=== PATIENT | male | born 1980 | race Caucasian/White ===

== ENCOUNTER 2022-11-26 09:58 | Emergency (ER) | payer OTHER, SELFPAY ==
[2022-11-26 11:03] LABS: #Basophils 0.1 10x3/uL (0.0-0.2); #Eosinphils 0.4 10x3/uL (0.0-0.5); #Monocytes 0.8 10x3/uL (0.0-1.1); #Neutrophils 4.3 10x3/uL (1.5-8.4); %Eosinophils 4.6 % (0.0-6.0); %Lymphocytes 37.1 % (18.0-47.0); %Monocytes 9.2 % (0.0-10.0); %Neutrophils 47.8 % (40.0-75.0); Hematocrit 43.3 % (38.8-50.0); Mean Corpuscular HGB CONC 34.6 g/dL (32.0-36.0); Mean Corpuscular Hemoglobin 31.3 pg (27.0-33.0); Mean Corpuscular Volume 90.4 fl (81.2-95.1); Mean Platelet Volume 8.5 fl (7.4-10.4); Platelet Count 274 10x3/uL (150-450); RBC Distribution Width 12.3 % (11.5-14.5); Red Blood Cell (RBC) Count 4.79 10x6/uL (4.32-5.72); White Blood Cell (WBC) Count 8.9 10x3/uL (3.5-10.5)
[2022-11-26 11:14] LABS: INR-International Normal Ratio 0.9; PTT 25.9 sec (22.0-33.0); Prothrombin Time 9.8 sec (9.5-12.1)
[2022-11-26 11:32] LABS: ALT (SGPT) 25 U/L (8-55); AST (SGOT) 19 U/L (5-34); Albumin 4.1 g/dL (3.5-5.0); Alkaline Phosphatase 63 U/L (40-110); Anion Gap 14 mmol/L (10-20); BUN (Urea Nitrogen) 16 mg/dL (8.9-20.6); Bilirubin, Total Less than 0.2 mg/dL (0.2-1.2); Calc. Creatinine Clearance 0 mL/min (70-130); Calcium 9.2 mg/dL (7.8-10.44); Carbon Dioxide 24 mmol/L (22-29); Chloride 105 mmol/L (98-107); Estimated GFR 109; Globulin 2.5 g/dL (2.4-3.5); Glucose 111 mg/dL (70-105); Lipase 31 U/L (8-78); Protein, Total 6.6 g/dL (6.0-8.3); Sodium 139 mmol/L (136-145)
[2022-11-26 11:37] LABS: Troponin I Less than 0.010 ng/mL (< 0.028)
[2022-11-26] MEDS ORDERED: Ketorolac Tromethamine 30 MG/ML VIAL ONE (12:15)
[2022-11-26] MEDS ORDERED: predniSONE 20 MG TAB ONE (12:40)
[2022-11-26] MEDS ORDERED: Ondansetron PF 4 MG/2 ML Vial ONE (12:44)
[2022-11-26] MEDS ORDERED: Morphine 4 MG/ML VIAL ONE (12:44)
[2022-11-26] MEDS ORDERED: Ipratropium/Albuterol 3 ML NEB ONE (13:08)
== END 2022-11-26 13:39 | disposition home or self-care (01) ==
LOC: CSHERS 09:58
DX: J45.901 Unspecified asthma with (acute) exacerbation (principal); R21 Rash and other nonspecific skin eruption; F17.210 Nicotine dependence, cigarettes, uncomplicated
CPT/HCPCS: 36415; 71045; 80053; 83690; 84484; 85025; 85610; 85730; 86850; 86900; 86901; 93005; 93010; 94640; 94760; 96361; 96374; 96375; J1885; J2270; J2405; J7512; J7620

== ENCOUNTER 2024-01-07 08:58 | Emergency (ER) | payer OTHER ==
[2024-01-07] MEDS ORDERED: Morphine 4 MG/ML VIAL ONE (09:24)
[2024-01-07] MEDS ORDERED: Ketorolac Tromethamine 30 MG (1 mL) VIAL ONE (09:24)
[2024-01-07] MEDS ORDERED: Ipratropium/Albuterol 3 ML NEB ONE (09:31)
[2024-01-07 09:34] LABS: #Basophils 0.08 10x3/uL (0.0-0.2); #Eosinophils 0.33 10x3/uL (0.0-0.5); #Monocytes 0.65 10x3/uL (0.0-1.1); #Neutrophils 3.89 10x3/uL (1.5-8.4); %Basophils 1.1 % (0.0-2.0); %Eosinophils 4.4 % (0.0-6.0); %Lymphocytes 33.2 % (18.0-47.0); %Monocytes 8.7 % (0.0-10.0); %Neutrophils 52.5 % (40.0-75.0); Hematocrit 45.8 % (38.8-50.0); Hemoglobin 15.6 g/dL (13.5-17.5); Mean Corpuscular HGB CONC 34.1 g/dL (32.0-36.0); Mean Corpuscular Hemoglobin 31.8 pg (27.0-33.0); Mean Corpuscular Volume 93.3 fL (81.2-95.1); Mean Platelet Volume 8.7 fL (7.4-10.4); Platelet Count 246 10x3/uL (150-450); RBC Distribution Width 12.3 % (11.5-14.5); Red Blood Cell (RBC) Count 4.91 10x6/uL (4.32-5.72); White Blood Cell (WBC) Count 7.4 10x3/uL (3.5-10.5)
[2024-01-07 09:53] LABS: ALT (SGPT) 21 U/L (8-55); AST (SGOT) 22 U/L (5-34); Albumin 4.3 g/dL (3.5-5.0); Alkaline Phosphatase 68 U/L (40-110); Anion Gap 17 mmol/L (10-20); BUN (Urea Nitrogen) 15 mg/dL (8.9-20.6); Bilirubin, Total 0.6 mg/dL (0.2-1.2); Calc. Creatinine Clearance 0 mL/min (70-130); Calcium 9.8 mg/dL (7.8-10.44); Carbon Dioxide 22 mmol/L (22-29); Chloride 106 mmol/L (98-107); Estimated GFR 107; Globulin 2.8 g/dL (2.4-3.5); Glucose 102 mg/dL (70-105); Lipase 12 U/L (8-78); Magnesium 2.1 mg/dL (1.6-2.6); Potassium 4.6 mmol/L (3.5-5.1); Protein, Total 7.1 g/dL (6.0-8.3); Sodium 140 mmol/L (136-145)
[2024-01-07 09:59] LABS: Troponin I Less than 0.010 ng/mL (< 0.028)
[2024-01-07] MEDS ORDERED: HYDROmorphone 0.5 MG/0.5 ML SYRINGE ONE (10:23)
== END 2024-01-07 11:14 | disposition home or self-care (01) ==
LOC: CSHERS 08:58
DX: J18.9 Pneumonia, unspecified organism (principal); J44.1 Chronic obstructive pulmonary disease with (acute) exacerbation; R07.89 Other chest pain; F17.210 Nicotine dependence, cigarettes, uncomplicated; Z55.6 Problems related to health literacy
CPT/HCPCS: 36415; 71045; 80053; 83690; 83735; 84484; 85025; 93005; 96374; 96375; J1885; J2272; J7620